=== PATIENT | male | born 1965 | race Caucasian/White ===

== ENCOUNTER 2017-10-06 00:35 | Emergency (ER) | payer SELFPAY ==
[~2017-10-06] VITALS: Ht 182.9 cm; Wt 92.9 kg
[2017-10-06] MEDS ORDERED: AUGMENTIN875 MG PO (01:56)
[2017-10-06 02:24] VITALS: BP 163/109
== END 2017-10-06 02:24 | disposition home or self-care (01) ==
LOC: EME 00:35 → EXP 00:35
PROC: 0CQ0XZZ Repair Upper Lip, External Approach (ICD-10-PCS; principal; 2017-10-06)
DX: S01.511A Laceration without foreign body of lip, initial encounter (principal); W01.198A Fall on same level from slipping, tripping and stumbling with subsequent striking against other object, initial encounter; I10 Essential (primary) hypertension; F17.200 Nicotine dependence, unspecified, uncomplicated
CPT/HCPCS: 99281; 99284